=== PATIENT | female | born 2000 | race Caucasian/White ===

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

== ENCOUNTER → 2018-10-02 | Outpatient (CLI) | payer BC ==
[2018-10-04 14:19] LABS: HERPES ZOSTER, VARICELLA IgG 821 index (Immune >165); HERPES ZOSTER, VARICELLA IgM <0.91 index (0.00-0.90)
== END ==
LOC: M WUC 16:38
PROVIDERS: ATTEND Family Medicine
DX: Z01.84 Encounter for antibody response examination (principal)

== ENCOUNTER → 2019-03-04 | Outpatient (CLI) | payer BC ==
[2019-03-04 20:37] LABS: BASO % 0.5 % (0.0-1.0); EOS % 0.5 % (0.0-3.0); HEMATOCRIT 35.2 % (36.0-47.0); HEMOGLOBIN 12.2 g/dl (12.0-15.5); LYMPH % 23.3 % (24.0-44.0); MEAN CORPUSCULAR HEMOGLOBIN 28.5 pg (27.0-33.0); MEAN CORPUSCULAR HGB CONC 34.7 g/dl (32.0-36.5); MEAN CORPUSCULAR VOLUME 82.2 fl (80.0-96.0); MONO # 0.6 10^3/uL (0.0-0.8); MONO % 6.8 % (0.0-5.0); NEUTROPHILS # 5.8 10^3/uL (1.5-8.5); NEUTROPHILS % 68.5 % (36.0-66.0); PLATELET COUNT, AUTOMATED 361 10^3/uL (150-450); RED BLOOD COUNT 4.28 10^6/uL (4.00-5.40); WHITE BLOOD COUNT 8.4 10^3/uL (4.0-10.0)
[2019-03-04 21:02] LABS: RUBELLA IgG QUALITATIVE EQUIVOCAL (IMMUNE)
[2019-03-04 22:13] LABS: CHLAMYDIA DNA AMPLIFICATION NEGATIVE (NEGATIVE); GC DNA AMPLIFICATION NEGATIVE (NEGATIVE)
[2019-03-06 09:58] LABS: HIV 1&2 SCREEN CENTAUR NEGATIVE (NEGATIVE)
== END ==
LOC: M WUC 16:18
PROVIDERS: ATTEND Advanced Practice Midwife
DX: Z34.01 Encounter for supervision of normal first pregnancy, first trimester (principal)

== ENCOUNTER → 2019-04-19 | Outpatient (CLI) | payer BC ==
--- NOTE | 2019-04-19 18:40 | REP ---
Obstetric sonography: History: Supervision of for anatomy. Findings: Scanning through the gravid uterus demonstrates a viable single intrauterine gestation in a cephalic lie. motion is observed and heart rate is recorder 150 beats per minute. A posterior grade zero placenta is seen without evidence of previa or abruption. Amniotic fluid is subjectively normal. Closed cervical length is 3.2 cm measured transabdominally. No extra abdominal abnormality is seen. No anomaly is seen. The following anatomic structures are identified and felt to be sonographically unremarkable: cranium, choroid plexus, cavum, cerebellum and posterior fossa, face and profile, lungs, four-chamber heart with left and right ventricular outflow tract views, diaphragm, left-sided stomach, abdominal wall cord insertion, three-vessel umbilical cord, kidneys and bladder, spine, upper and lower extremities. Biometry chart: BPD 4.2 cm 18 weeks 6 days head circumference 14.6 cm 17 weeks 5 days abdominal circumference 12.4 cm 18 weeks 0 days femur length 2.5 cm 17 weeks 5 days humeral length 2.6 cm 18 weeks 2 days HC/AC ratio normal 1.18 cephalic index normal 0.84 estimated weight 214 grams, 0 pounds 7 ounces, 38th percentile for 18 weeks 1 day. Impression: Viable single intrauterine gestation of 18 weeks 1 day by today's composite sonographic criteria. LATOYA by today's sonography September 19, 2019. No anatomic abnormality. Electronically Signed by Brent Oliveira MD 04/19/2019 08:03 P
== END ==
LOC: M RAD 15:40
PROVIDERS: ATTEND Advanced Practice Midwife
DX: Z34.02 Encounter for supervision of normal first pregnancy, second trimester (principal); Z3A.18 18 weeks gestation of pregnancy

== ENCOUNTER → 2019-06-11 | Outpatient (CLI) | payer BC ==
[2019-06-11 13:02] LABS: HEMATOCRIT 32.8 % (36.0-47.0); HEMOGLOBIN 10.3 g/dl (12.0-15.5); MEAN CORPUSCULAR HEMOGLOBIN 27.8 pg (27.0-33.0); MEAN CORPUSCULAR HGB CONC 31.4 g/dl (32.0-36.5); MEAN CORPUSCULAR VOLUME 88.6 fl (80.0-96.0); PLATELET COUNT, AUTOMATED 289 10^3/uL (150-450); WHITE BLOOD COUNT 10.5 10^3/uL (4.0-10.0)
== END ==
LOC: M WUC 09:05
PROVIDERS: ATTEND Advanced Practice Midwife
DX: Z34.02 Encounter for supervision of normal first pregnancy, second trimester (principal)

== ENCOUNTER → 2019-07-09 | Outpatient (CLI) | payer BC ==
[2019-07-09 13:01] LABS: ALBUMIN 2.6 GM/DL (3.2-5.2); ALT/SGPT 17 U/L (12-78); BILIRUBIN,TOTAL 0.3 MG/DL (0.2-1.0); BLOOD UREA NITROGEN 8 MG/DL (7-18); CALCIUM LEVEL 8.7 MG/DL (8.5-10.1); CARBON DIOXIDE LEVEL 25 MEQ/L (21-32); CHLORIDE LEVEL 106 MEQ/L (98-107); CREATININE FOR GFR 0.53 MG/DL (0.55-1.30); GLUCOSE, FASTING 117 MG/DL (70-100); IRON (FE) 94 UG/DL (50-170); POTASSIUM SERUM 3.6 MEQ/L (3.5-5.1); SODIUM LEVEL 138 MEQ/L (136-145); TOTAL IRON BINDING CAPACITY 522 UG/DL (250-450); TOTAL PROTEIN 5.6 GM/DL (6.4-8.2)
[2019-07-09 13:10] LABS: BASO # 0.1 10^3/uL (0.0-0.2); BASO % 0.5 % (0.0-1.0); EOS # 0.1 10^3/uL (0.0-0.5); EOS % 0.5 % (0.0-3.0); HEMATOCRIT 32.7 % (36.0-47.0); HEMOGLOBIN 10.7 g/dl (12.0-15.5); LYMPH # 1.7 10^3/uL (1.5-5.0); LYMPH % 15.4 % (24.0-44.0); MEAN CORPUSCULAR HEMOGLOBIN 28.3 pg (27.0-33.0); MEAN CORPUSCULAR HGB CONC 32.7 g/dl (32.0-36.5); MEAN CORPUSCULAR VOLUME 86.5 fl (80.0-96.0); MONO # 0.6 10^3/uL (0.0-0.8); MONO % 5.3 % (0.0-5.0); NEUTROPHILS # 8.4 10^3/uL (1.5-8.5); NEUTROPHILS % 76.8 % (36.0-66.0); PLATELET COUNT, AUTOMATED 270 10^3/uL (150-450); RED BLOOD COUNT 3.78 10^6/uL (4.00-5.40); WHITE BLOOD COUNT 10.9 10^3/uL (4.0-10.0)
== END ==
LOC: M WUC 09:45
PROVIDERS: ATTEND Physician Assistant
DX: J02.9 Acute pharyngitis, unspecified (principal); M79.10 Myalgia, unspecified site

== ENCOUNTER → 2019-08-29 | Outpatient (REF) | payer BC | LOC: M SFHCWAGY 13:23 | PROVIDERS: ATTEND Nurse Practitioner Women's Health | DX: O99.820 Streptococcus B carrier state complicating pregnancy (principal); Z3A.37 37 weeks gestation of pregnancy ==

== ENCOUNTER 2019-09-24 14:16 | Inpatient (IN) | payer BC ==
[2019-09-24] VITALS (8 sets, daily range): BP systolic 106–122; BP diastolic 69–81
[~2019-09-24] VITALS: Ht 157.5 cm; Wt 70.8 kg
[2019-09-24] MEDS ORDERED: PREN29TA4 PO (14:42)
[2019-09-24] MEDS ORDERED: ACET325C5 PO (14:42)
[2019-09-24 15:47] LABS: HEMATOCRIT 32.4 % (36.0-47.0); MEAN CORPUSCULAR HEMOGLOBIN 28.4 pg (27.0-33.0); MEAN CORPUSCULAR VOLUME 83.5 fl (80.0-96.0); PLATELET COUNT, AUTOMATED 226 10^3/uL (150-450); RED BLOOD COUNT 3.88 10^6/uL (4.00-5.40)
[2019-09-24 16:19] LABS: ALT/SGPT 171 U/L (12-78); BILIRUBIN,TOTAL 0.3 MG/DL (0.2-1.0); CREATININE FOR GFR 0.65 MG/DL (0.55-1.30); GLOMERULAR FILTRATION RATE > 60.0 (>60); LDH LACTATE DEHYDROGENASE 231 U/L (84-246); URIC ACID 4.9 MG/DL (2.6-6.0)
[2019-09-24] MEDS ORDERED: ACETAMINOPHEN 500 MG TAB PO PRN (17:00)
[2019-09-24] MEDS: miSOPROStol 50 MCG 1/2 TAB (S0191) PO SCH ×2 (17:01→22:18)
--- NOTE | 2019-09-24 17:35 | HPE ---
DATE OF ADMISSION: 09/24/2019 Diane is a 19-year-old, 1, para 0. She is at 40-5/7 weeks gestation, estimated date of confinement (EDC) of 09/19/2019 based on last menstrual period and confirmed by first rest ultrasound . Presents to labor and delivery today for induction of labor due to preeclampsia versus gestational hypertension, recent onset today. She does report a mild headache. She denies visual disturbances, epigastric pain and right upper quadrant discomfort. She denies regular painful contractions, vaginal bleeding and leakage of fluid. The fetus has been active. Her care initiated at [facility] in the first trimester. course complicated by anxiety where she has been managed on Zoloft 25 mg, rubella equivocal with a plan for immunization and a history of human papillomavirus (HPV). OBSTETRIC HISTORY: Primigravida. OBSTETRIC LABS: O positive, antibody screen negative, RPR negative, hepatitis C antibody nonreactive, hepatitis B surface antigen negative, rubella equivocal, varicella immune. Gonorrhea and chlamydia negative. Gestational diabetic screen normal at 123. GBS is negative. PAST MEDICAL HISTORY: Anxiety. SURGERIES: None. FAMILY HISTORY: Diabetes and hypertension. SOCIAL HISTORY: The patient is . She is a nonsmoker. She denies alcohol and drug use. She does have a history of positive HPV. She denies history of abuse, physical, sexual and emotional. ALLERGIES: SULFA and BACTRIM. CURRENT MEDICATIONS: - vitamins - Zoloft 25 mg daily OBJECTIVE: Temperature 98, pulse 108, respirations 18. Blood pressures on arrival normotensive 106/81, 119/71 in the office this morning, when she was seen in our office 144/92. She did undergo preeclamptic workup. Her uric acid 4.9. AST elevated at 69, ALT elevated at 171. Her LDH is normal at 231. CBC: Hemoglobin 11, hematocrit 32.4, platelets 226 at the time. heart rate is 135 with moderate variability, positive accelerations, no decelerations. There is no pattern of regular contractions. Her abdomen is gravid, cephalic presentation. Estimated weight 7 pounds. Sterile Vaginal Exam: 1 cm dilated, 50% effaced, minus 3 station, posterior, moderate texture, no slow with the exam. ASSESSMENT: Intrauterine at 40-5/7, heart rate category 1, preeclampsia versus gestational hypertension. PLAN: Admit patient to labor and delivery. Routine labs. Out of bed ad daniel at this time. Regular diet at this time. Saline lock. I will start misoprostol 50 mcg by mouth for cervical ripening. I did review risks, benefits, and alternatives to the patient regarding induction of labor. All of her questions have been answered as well as her partner 's questions. She has been verbally consented for emergency surgery and blood products if they are necessary. I would do anticipate cervical ripening, may consider a Mercado bulb insertion, assist rupture of membranes and likely will start IV Pitocin for labor induction. I do anticipate cervical ripening.
[2019-09-24] MEDS ORDERED: PROMETHAZINE INJ 25 MG/ML VIAL (J2550) IV ONE ×2 (21:15→21:30)
[2019-09-24] MEDS ORDERED: BUTORPHANOL 2 MG/ML INJ (J0595) IV ONE ×2 (21:15→21:30)
[2019-09-25] VITALS (40 sets, daily range): BP systolic 96–143; BP diastolic 54–82
[2019-09-25] MEDS: miSOPROStol 50 MCG 1/2 TAB (S0191) PO SCH ×2 (02:49→05:00)
[2019-09-25] MEDS ORDERED: FENTANYL 2MCG/ML ROPIVACAINE 0.2% IN 0.9% NACL 100ML IVBAG As Ordered ONE (05:40)
[2019-09-25] MEDS ORDERED: LACTATED RINGER'S 1000 ML IV PRN (07:00)
[2019-09-25] MEDS ORDERED: ONDANSETRON 4MG/2ML VIAL IV PRN (07:00)
[2019-09-25] MEDS ORDERED: diphenhydrAMINE 50MG/ML VIAL (J1200) IV PRN (07:00)
[2019-09-25] MEDS ORDERED: LR 1,000 ML IV ONE (07:00)
[2019-09-25] MEDS ORDERED: EPIDURAL COMMENT XX SCH (07:00)
[2019-09-25] MEDS ORDERED: ePHEDrine SULFATE 25 MG/5 ML(5MG/ML) SYRINGE IV PRN (07:00)
[2019-09-25] MEDS ORDERED: REFRIGERATOR IV KEYS XX PRN (07:00)
[2019-09-25] MEDS ORDERED: NALOXONE INJ 0.4MG/1ML VIAL (J2310 PER 1MG) IV PRN (07:00)
[2019-09-25] MEDS ORDERED: FENTANYL/ROPIVACAINE/NACL BAG 100 ML EPIDURAL SCH (07:00)
[2019-09-25] MEDS ORDERED: EPIDURAL/PCA KEYS XX PRN (07:00)
[2019-09-25] MEDS: PRENATAL VITAMINS CHEWABLE TABLET PO SCH (09:00)
[2019-09-25] MEDS ORDERED: OXYTOCIN 30 UNITS IN 0.9% NaCl 500ML IV BAG (J2590) As Ordered ONE (09:52)
[2019-09-25 11:32] LABS: CORD GAS ABE A -9.8; CORD GAS HCO3 A 21.6 MEQ/L; CORD GAS O2 SAT A 43.5 %; CORD GAS PCO2 A 72.8 mmHg; CORD GAS PH A 7.09 UNITS; CORD GAS PO2 A 26.2 mmHg; CORD GAS SBC A 15.7 MEQ/L; CORD GAS TCO2 A 23.8 MEQ/L
[2019-09-25 11:34] LABS: CORD GAS ABE V -7.6; CORD GAS HCO3 V 18.9 MEQ/L; CORD GAS O2 SAT V 56.8 %; CORD GAS PCO2 V 42.2 mmHg; CORD GAS PH V 7.27 UNITS; CORD GAS PO2 V 25.6 mmHg; CORD GAS SBC V 17.5 MEQ/L; CORD GAS TCO2 V 20.2 MEQ/L
[2019-09-25] MEDS ORDERED: OXYTOCIN DRIP 30 UNITS in IV 1 EA IV SCH (11:44)
[2019-09-25] MEDS ORDERED: ACETAMINOPHEN 500 MG TAB PO PRN (11:45)
[2019-09-25] MEDS ORDERED: ACETAMINOPHEN TAB 650MG DOSE (2X325MG) PO PRN (11:45)
[2019-09-25] MEDS ORDERED: DOCUSATE SODIUM 100 MG CAP PO PRN (11:45)
[2019-09-25] MEDS ORDERED: RHOGAM 300 MCG (1500 IU) INJ (J2790) IM SCH (11:45)
[2019-09-25] MEDS ORDERED: MEASLES,MUMPS,RUBELLA VACCINE INJ (MMR-II) (90707) SC SCH (11:45)
[2019-09-25] MEDS ORDERED: IBUPROFEN 600 MG TAB PO PRN (11:45)
[2019-09-25] MEDS ORDERED: DIBUCAINE 1% OINTMENT 30GM TOP PRN (11:45)
[2019-09-25] MEDS ORDERED: LIDOCAINE 1% MDV 20ML VIAL INFIL ONE (11:45)
[2019-09-25] MEDS ORDERED: ANUSOL HC CREAM 30GM TOP PRN (11:45)
--- NOTE | 2019-09-25 11:57 | DN ---
DATE OF DELIVERY: 09/25/2019 DELIVERY NOTE: Diane is a 19-year-old, 1, para 1-0-0-1 now, was admitted to labor and delivery for induction of labor due to preeclampsia. She had three doses of misoprostol and labor did ensue. She utilized an epidural for her labor coping. She had spontaneous rupture of membranes for clear fluid at 0342 hours. She reached full dilation at 0946 hours. She pushed to a normal spontaneous vaginal delivery of a live male in right occiput anterior (RONALD) position with restitution to occiput transverse (ROT) position at 1048 hours. There was a nuchal cord times one loose reduced manually at the time of delivery. There was a mild shoulder dystocia that was resolved with Karie maneuver and maternal expulsive efforts and gentle downward traction. The was then placed on maternal abdomen crying and active. Mouth and nares were bulb suctioned. The cord was clamped times two and cut by the father of the baby under my direction. Cord blood and cord gases were obtained. Spontaneous expulsion of an intact placenta with three-vessel cord by Schultze mechanism was at 1056 hours. Uterine hemostasis was achieved with uterine fundal massage and IV Pitocin rapid infusion. Estimated blood loss 400 mL. Perineum and vagina inspected. Noted to have a second-degree midline laceration as well as bilateral labial lacerations. The lacerations were infiltrated with 1% lidocaine and repaired with #3-0 Vicryl Rapide in the usual fashion. male weighed 3850 grams (8 pounds 8 ounces) score was 8 and 9. Mom is going to breast feed her son, and the family has named him Enoch. At the close of delivery, lap counts, needle counts and instrument counts were correct and verified. Arterial cord gas 7.090 with a base excess of -9.8. Venous cord pH 7.270 with a base excess of -7.6.
[2019-09-25] MEDS: IBUPROFEN 800 MG TAB PO PRN ×2 (13:41→21:23)
[2019-09-26 05:49] VITALS: BP 105/51
[2019-09-26] MEDS: PRENATAL VITAMINS CHEWABLE TABLET PO SCH (07:45)
[2019-09-26] MEDS: IBUPROFEN 800 MG TAB PO PRN ×2 (07:46→15:09)
[2019-09-26] MEDS ORDERED: BOOSTRIX/ADACEL VACCINE (DIPHTH/PERTUSS/ACELL/TETANUS) 0.5ML SYR IM ONE (09:00)
== END 2019-09-26 19:39 | disposition home or self-care (01) | DRG 560 ==
LOC: M LDI 14:16 → M OBS 09-25 13:22
PROVIDERS: ADMIT Obstetrics & Gynecology; ATTEND Obstetrics & Gynecology
PROC: 10E0XZZ Delivery of Products of Conception, External Approach (ICD-10-PCS; principal; 2019-09-24)
PROC: 0KQM0ZZ Repair Perineum Muscle, Open Approach (ICD-10-PCS; 2019-09-24)
PROC: 3E0DXGC Introduction of Other Therapeutic Substance into Mouth and Pharynx, External Approach (ICD-10-PCS; 2019-09-24)
DX: O14.94 Unspecified pre-eclampsia, complicating childbirth (principal); O99.344 Other mental disorders complicating childbirth; F41.9 Anxiety disorder, unspecified; Z37.0 Single live birth; Z3A.40 40 weeks gestation of pregnancy; O69.82X0 Labor and delivery complicated by other cord entanglement, without compression, not applicable or unspecified; O66.0 Obstructed labor due to shoulder dystocia; Z79.899 Other long term (current) drug therapy; Z88.8 Allergy status to other drugs, medicaments and biological substances; Z88.2 Allergy status to sulfonamides; O70.1 Second degree perineal laceration during delivery

== ENCOUNTER → 2019-11-27 | Outpatient (CLI) | payer BC ==
[~2019-11-27] MED LIST: ACET325C5 PO; PREN29TA4 PO
== END ==
LOC: M LABSMTC 13:30
PROVIDERS: ATTEND Family Medicine
DX: Z11.59 Encounter for screening for other viral diseases (principal); Z20.828 Contact with and (suspected) exposure to other viral communicable diseases
CPT/HCPCS: C9803; U0003

== ENCOUNTER → 2020-06-04 | Outpatient (REF) | payer BC | LOC: M LAB REF 15:53 | PROVIDERS: ATTEND Physician Assistant | DX: R30.0 Dysuria (principal) ==

== ENCOUNTER → 2020-07-15 | Outpatient (CLI) | payer BC ==
[2020-07-15 17:03] LABS: ALBUMIN 3.9 GM/DL (3.2-5.2); ALT/SGPT 29 U/L (12-78); BILIRUBIN,TOTAL 0.9 MG/DL (0.2-1.0); BLOOD UREA NITROGEN 12 MG/DL (7-18); CARBON DIOXIDE LEVEL 26 MEQ/L (21-32); CHLORIDE LEVEL 107 MEQ/L (98-107); CREATININE FOR GFR 0.65 MG/DL (0.55-1.30); FREE T4 0.94 NG/DL (0.76-1.46); GLOMERULAR FILTRATION RATE > 60.0 (>60); GLUCOSE, FASTING 88 MG/DL (70-100); POTASSIUM SERUM 3.7 MEQ/L (3.5-5.1); SODIUM LEVEL 139 MEQ/L (136-145); TOTAL PROTEIN 6.6 GM/DL (6.4-8.2)
[2020-07-15 17:20] LABS: BASO % 0.6 % (0.0-1.0); EOS % 0.5 % (0.0-3.0); HEMATOCRIT 38.6 % (36.0-47.0); HEMOGLOBIN 12.5 g/dl (12.0-15.5); LYMPH # 1.9 10^3/uL (1.5-5.0); LYMPH % 30.1 % (24.0-44.0); MEAN CORPUSCULAR HEMOGLOBIN 27.2 pg (27.0-33.0); MEAN CORPUSCULAR HGB CONC 32.4 g/dl (32.0-36.5); MEAN CORPUSCULAR VOLUME 84.1 fl (80.0-96.0); MONO # 0.5 10^3/uL (0.0-0.8); MONO % 7.7 % (2.0-8.0); NEUTROPHILS # 3.9 10^3/uL (1.5-8.5); NEUTROPHILS % 60.8 % (36.0-66.0); PLATELET COUNT, AUTOMATED 322 10^3/uL (150-450); RED BLOOD COUNT 4.59 10^6/uL (4.00-5.40); WHITE BLOOD COUNT 6.4 10^3/uL (4.0-10.0)
== END ==
LOC: M WUC 11:38
PROVIDERS: ATTEND Physician Assistant
DX: R00.2 Palpitations (principal); Z20.828 Contact with and (suspected) exposure to other viral communicable diseases

== ENCOUNTER 2020-07-17 11:48 | Emergency (ER) | payer BC ==
[~2020-07-17] VITALS: Ht 157.5 cm; Wt 53.6 kg
[2020-07-17 13:44] LABS: BASO # 0.1 10^3/uL (0.0-0.2); BASO % 0.7 % (0.0-1.0); EOS % 0.3 % (0.0-3.0); HEMATOCRIT 37.6 % (36.0-47.0); HEMOGLOBIN 12.8 g/dl (12.0-15.5); LYMPH # 2.4 10^3/uL (1.5-5.0); LYMPH % 26.5 % (24.0-44.0); MEAN CORPUSCULAR HEMOGLOBIN 27.4 pg (27.0-33.0); MEAN CORPUSCULAR VOLUME 80.5 fl (80.0-96.0); MONO # 0.5 10^3/uL (0.0-0.8); MONO % 5.4 % (2.0-8.0); NEUTROPHILS # 6.1 10^3/uL (1.5-8.5); NEUTROPHILS % 66.5 % (36.0-66.0); PLATELET COUNT, AUTOMATED 361 10^3/uL (150-450); RED BLOOD COUNT 4.67 10^6/uL (4.00-5.40); WHITE BLOOD COUNT 9.1 10^3/uL (4.0-10.0)
[2020-07-17 14:14] LABS: BLOOD UREA NITROGEN 12 MG/DL (7-18); CALCIUM LEVEL 9.5 MG/DL (8.5-10.1); CARBON DIOXIDE LEVEL 24 MEQ/L (21-32); CHLORIDE LEVEL 112 MEQ/L (98-107); CREATININE FOR GFR 0.65 MG/DL (0.55-1.30); FREE THYROXINE INDEX 2.5 % (1.3-4.8); GLOMERULAR FILTRATION RATE > 60.0 (>60); GLUCOSE, FASTING 87 MG/DL (70-100); MAGNESIUM LEVEL 2.1 MG/DL (1.8-2.4); POTASSIUM SERUM 3.6 MEQ/L (3.5-5.1); SODIUM LEVEL 141 MEQ/L (136-145); T UPTAKE 27 % (30-39); THYROXINE (T4) 9.4 UG/DL (4.5-12.0); TROPONIN I < 0.02 NG/ML (< 0.10)
--- NOTE | 2020-07-17 15:15 | REP ---
INDICATION: chest pain, sob COMPARISON: 06/03/2016. TECHNIQUE: PA/Lateral FINDINGS: Lungs: Clear, no infiltrate. Heart: Normal in size. Mediastinum: Mediastinal silhouette unremarkable. Pleural angles: Unremarkable.. Bones and soft tissues: Unremarkable. IMPRESSION: No acute pulmonary disease. <Electronically signed by Jason Bernstein > 07/17/20 [id number]
[2020-07-17 15:55] VITALS: BP 115/70
--- NOTE | 2020-07-17 18:50 | ECGEPIP ---
[facility] - ED Test Date: 2020-07-17 Pat Name: JOSE L DEVLIN Department: Room: - Gender: Female [employer] Miller: : 2000 Requested By: Tamia West Order Number: [id number] Reading MD: Stella Deluca Measurements Intervals [place] Rate: 96 P: 58 [place]: 124 QRS: 50 QRSD: 76 T: 29 QT: 340 QTc: 429 Interpretive Statements Normal sinus rhythm No prior Electronically Signed on 07-17-2020 18:49:45 EST by Stella Deluca
== END 2020-07-17 16:01 | disposition home or self-care (01) ==
LOC: M ED 11:48
DX: R00.2 Palpitations (principal); R07.89 Other chest pain; Z32.01 Encounter for pregnancy test, result positive; Z88.1 Allergy status to other antibiotic agents; Z3A.00 Weeks of gestation of pregnancy not specified

== ENCOUNTER → 2020-11-30 | Outpatient (REF) | payer BC | LOC: M SFHCWAGY 18:57 | PROVIDERS: ATTEND Advanced Practice Midwife | DX: Z12.4 Encounter for screening for malignant neoplasm of cervix (principal); R87.625 Unsatisfactory cytologic smear of vagina ==

== ENCOUNTER → 2021-01-15 | Outpatient (REF) | payer BC | LOC: M PLALAB 12:49 | PROVIDERS: ATTEND Advanced Practice Midwife | DX: R87.615 Unsatisfactory cytologic smear of cervix (principal) ==

== ENCOUNTER → 2021-03-13 | Outpatient (REF) | LOC: M EMP 11:03 | PROVIDERS: ATTEND Family Medicine | DX: Z20.828 Contact with and (suspected) exposure to other viral communicable diseases (principal) ==

== ENCOUNTER → 2021-04-12 | Outpatient (REF) ==
[2021-04-12 15:59] LABS: RSV AMPLIFICATION NEGATIVE (NEGATIVE)
== END ==
LOC: M LABSMTC 10:15
PROVIDERS: ATTEND Family Medicine
DX: Z20.822 Contact with and (suspected) exposure to COVID-19 (principal)

== ENCOUNTER → 2021-04-16 | Outpatient (REF) | LOC: M LABSMTC 10:06 | PROVIDERS: ATTEND Family Medicine | DX: Z20.828 Contact with and (suspected) exposure to other viral communicable diseases (principal) ==

== ENCOUNTER → 2021-06-02 | Outpatient (CLI) | payer BC ==
[2021-06-02 09:52] LABS: HEMOGLOBIN 12.6 g/dl (12.0-15.5); MEAN CORPUSCULAR HEMOGLOBIN 27.4 pg (27.0-33.0); MEAN CORPUSCULAR HGB CONC 32.3 g/dl (32.0-36.5); MEAN CORPUSCULAR VOLUME 84.8 fl (80.0-96.0); PLATELET COUNT, AUTOMATED 331 10^3/uL (150-450); WHITE BLOOD COUNT 8.1 10^3/uL (4.0-10.0)
[2021-06-02 10:30] LABS: ALT/SGPT 28 U/L (12-78); BLOOD UREA NITROGEN 14 MG/DL (7-18); CALCIUM LEVEL 8.9 MG/DL (8.5-10.1); CARBON DIOXIDE LEVEL 27 MEQ/L (21-32); CHLORIDE LEVEL 107 MEQ/L (98-107); CREATININE FOR GFR 0.73 MG/DL (0.55-1.30); GLOMERULAR FILTRATION RATE > 60.0 (>60); GLUCOSE, FASTING 70 MG/DL (70-100); SODIUM LEVEL 140 MEQ/L (136-145)
[2021-06-02 10:31] LABS: ALBUMIN 3.9 GM/DL (3.2-5.2); BILIRUBIN,TOTAL 0.5 MG/DL (0.2-1.0); THYROID STIMULATING HORMONE 0.754 uIU/ML (0.358-3.740); TOTAL PROTEIN 6.8 GM/DL (6.4-8.2)
== END ==
LOC: M WUC 08:13
PROVIDERS: ATTEND Family Medicine
DX: R53.83 Other fatigue (principal)

== ENCOUNTER → 2023-02-09 | Outpatient (CLI) | payer OTHER | LOC: M LAB 18:16 | PROVIDERS: ATTEND Advanced Practice Midwife | DX: N91.2 Amenorrhea, unspecified (principal) ==

== ENCOUNTER → 2023-02-11 | Outpatient (CLI) | payer OTHER ==
[~2023-02-11] MED LIST changes: +ACET-683 PO; +IBUP-1022 PO; +MULTCHW14 PO; +SERT-141 PO; +ZOLO50TA PO
== END ==
LOC: M LAB 10:02
PROVIDERS: ATTEND Advanced Practice Midwife
DX: Z30.432 Encounter for removal of intrauterine contraceptive device (principal); O26.30 Retained intrauterine contraceptive device in pregnancy, unspecified trimester; Z3A.00 Weeks of gestation of pregnancy not specified

== ENCOUNTER → 2023-02-12 | Day surgery (SDC) | payer OTHER ==
[~2023-02-12] VITALS: Ht 157.5 cm; Wt 61.3 kg
[~2023-02-12] MED LIST changes: +ACETAMINOPHEN 1000MG 100ML IV BAG As Ordered ONE; +HOME MED LIST COMPLETE! XX SCH; +HYDROMORPHONE HCL 0.5 MG/ 0.5 ML SYRINGE IV PRN; +KETOROLAC 60MG 2ML VIAL As Ordered ONE; +LIDOCAINE 2% 100MG/5ML SDV (FOR ANES.) As Ordered ONE; +LR 1,000 ML IV SCH; +MED REC IN PROGRESS XX SCH; +METOCLOPRAMIDE INJ 10MG/2ML VIAL As Ordered ONE; +MIDAZOLAM INJ 2MG/2ML VIAL As Ordered ONE; +MORPHINE 2 MG/ML 1ML VIAL IV ONE; +NS 1,000 ML IV SCH; +ONDANSETRON 4MG 2ML VIAL As Ordered ONE; +ONDANSETRON 4MG 2ML VIAL IV PRN; +ROCURONIUM BROMIDE 50MG/5ML VIAL As Ordered ONE; +SUGAMMADEX SODIUM 500 MG/5 ML VIAL (BRIDION) As Ordered ONE; +fentaNYL 250 MCG/5 ML INJECTION As Ordered ONE; +propofoL 200 MG/20 ML VIAL As Ordered ONE
[2023-02-12 11:48] LABS: BASO # 0.1 10^3/uL (0.0-0.2); BASO % 0.6 % (0.0-1.0); EOS # 0.1 10^3/uL (0.0-0.5); EOS % 0.5 % (0.0-3.0); HEMATOCRIT 38.9 % (36.0-47.0); HEMOGLOBIN 12.9 g/dl (12.0-15.5); LYMPH # 2.1 10^3/uL (1.5-5.0); LYMPH % 21.2 % (24.0-44.0); MEAN CORPUSCULAR HEMOGLOBIN 28.2 pg (27.0-33.0); MEAN CORPUSCULAR HGB CONC 33.2 g/dl (32.0-36.5); MEAN CORPUSCULAR VOLUME 84.9 fl (80.0-96.0); MONO # 0.6 10^3/uL (0.0-0.8); MONO % 5.9 % (2.0-8.0); NEUTROPHILS # 7.1 10^3/uL (1.5-8.5); NEUTROPHILS % 71.5 % (36.0-66.0); PLATELET COUNT, AUTOMATED 322 10^3/uL (150-450); RED BLOOD COUNT 4.58 10^6/uL (4.00-5.40)
[2023-02-12 12:12] LABS: BLOOD UREA NITROGEN 11 MG/DL (9-23); CALCIUM LEVEL 9.1 MG/DL (8.5-10.1); CARBON DIOXIDE LEVEL 28 MMOL/L (20-31); CHLORIDE LEVEL 106 MMOL/L (98-107); CREATININE FOR GFR 0.61 MG/DL (0.55-1.30); GLOMERULAR FILTRATION RATE > 60.0 (>60); GLUCOSE, FASTING 82 MG/DL (60-100); POTASSIUM SERUM 3.8 MMOL/L (3.5-5.1); SODIUM LEVEL 139 MMOL/L (136-145)
[2023-02-12 12:42] LABS: HCG, SERUM QUANTITATIVE 9823.8 MIU/ML (<4.2)
[2023-02-12 13:27] LABS: RSV AMPLIFICATION NEGATIVE (NEGATIVE)
[2023-02-12] MEDS: MEPERIDINE 25 MG/ML 1ML VIAL IV PRN ×2 (18:41→18:49)
[2023-02-12] MEDS: fentaNYL 100 MCG/2 ML INJECTION IV PRN ×2 (18:55→19:04)
[2023-02-12] MEDS: oxyCODONE 5MG TAB PO PRN ×2 (19:08→19:54)
[2023-02-12 19:45] VITALS: BP 118/69; TEMP 97.4; O2SAT 100
== END | disposition home or self-care (01) ==
LOC: M ED 10:49 → M SDC 10:50
PROVIDERS: ATTEND Obstetrics & Gynecology
DX: O00.102 Left tubal pregnancy without intrauterine pregnancy (principal); Z88.2 Allergy status to sulfonamides; Z88.1 Allergy status to other antibiotic agents
CPT/HCPCS: 59151; 76801; 80048; 84702; 85025; 86850; 86900; 86901; 87631; 88305; 93041; 93976; 94760; 96360; 96361; 99285; J0131; J1100; J1885; J2175; J2250; J2405; J2765; J3010

== ENCOUNTER → 2023-04-01 | Outpatient (REF) ==
[~2023-04-01] MED LIST changes: -ACETAMINOPHEN 1000MG 100ML IV BAG As Ordered ONE; -HOME MED LIST COMPLETE! XX SCH; -HYDROMORPHONE HCL 0.5 MG/ 0.5 ML SYRINGE IV PRN; -KETOROLAC 60MG 2ML VIAL As Ordered ONE; -LIDOCAINE 2% 100MG/5ML SDV (FOR ANES.) As Ordered ONE; -LR 1,000 ML IV SCH; -MED REC IN PROGRESS XX SCH; -METOCLOPRAMIDE INJ 10MG/2ML VIAL As Ordered ONE; -MIDAZOLAM INJ 2MG/2ML VIAL As Ordered ONE; -MORPHINE 2 MG/ML 1ML VIAL IV ONE; -NS 1,000 ML IV SCH; -ONDANSETRON 4MG 2ML VIAL As Ordered ONE; -ONDANSETRON 4MG 2ML VIAL IV PRN; -ROCURONIUM BROMIDE 50MG/5ML VIAL As Ordered ONE; -SUGAMMADEX SODIUM 500 MG/5 ML VIAL (BRIDION) As Ordered ONE; -fentaNYL 250 MCG/5 ML INJECTION As Ordered ONE; -propofoL 200 MG/20 ML VIAL As Ordered ONE
[2023-04-01 16:04] LABS: RSV AMPLIFICATION NEGATIVE (NEGATIVE)
== END ==
LOC: M EMP 12:15
PROVIDERS: ATTEND Family Medicine
DX: Z20.822 Contact with and (suspected) exposure to COVID-19 (principal)

== ENCOUNTER → 2023-12-07 | Outpatient (CLI) | payer BC, OTHER ==
[2023-12-07 11:16] LABS: BASO # 0.1 10^3/uL (0.0-0.2); BASO % 0.8 % (0.0-1.0); EOS # 0.1 10^3/uL (0.0-0.5); EOS % 0.8 % (0.0-3.0); HEMATOCRIT 37.4 % (36.0-47.0); HEMOGLOBIN 12.2 g/dl (12.0-15.5); LYMPH # 2.3 10^3/uL (1.5-5.0); LYMPH % 27.5 % (24.0-44.0); MEAN CORPUSCULAR HEMOGLOBIN 28.4 pg (27.0-33.0); MEAN CORPUSCULAR HGB CONC 32.6 g/dl (32.0-36.5); MEAN CORPUSCULAR VOLUME 87.2 fl (80.0-96.0); MONO # 0.6 10^3/uL (0.0-0.8); MONO % 7.5 % (2.0-8.0); NEUTROPHILS # 5.3 10^3/uL (1.5-8.5); PLATELET COUNT, AUTOMATED 317 10^3/uL (150-450); RED BLOOD COUNT 4.29 10^6/uL (4.00-5.40); WHITE BLOOD COUNT 8.4 10^3/uL (4.0-10.0)
[2023-12-07 11:45] LABS: ALBUMIN 3.9 G/DL (3.2-5.2); ALKALINE PHOSPHATASE 69 U/L (46-116); ALT/SGPT 19 U/L (7.0-40); AST/SGOT 13 U/L (<34); BILIRUBIN,TOTAL 0.4 MG/DL (0.3-1.2); BLOOD UREA NITROGEN 15 MG/DL (9-23); CALCIUM LEVEL 9.1 MG/DL (8.5-10.1); CARBON DIOXIDE LEVEL 28 MMOL/L (20-31); CHLORIDE LEVEL 106 MMOL/L (98-107); CHOLESTEROL LEVEL 210 MG/DL (<200); CHOLESTEROL RISK RATIO 3.18 (<5); GLOMERULAR FILTRATION RATE > 60.0 (>60); GLUCOSE, FASTING 88 MG/DL (60-100); HDL CHOLESTEROL 65.9 MG/DL (>40); LDL CHOLESTEROL 134.3 MG/DL (<100); NON-HDL-C 144.1 MG/DL; POTASSIUM SERUM 4.6 MMOL/L (3.5-5.1); SODIUM LEVEL 140 MMOL/L (136-145); TOTAL PROTEIN 6.3 G/DL (5.7-8.2); TRIGLYCERIDES LEVEL 49 MG/DL (<150)
[2023-12-07 11:50] LABS: THYROID STIMULATING HORMONE 1.717 uIU/ML (0.55-4.78)
== END ==
LOC: M PLALAB 07:17
PROVIDERS: ATTEND Family Medicine
DX: Z00.00 Encounter for general adult medical examination without abnormal findings (principal); Z79.899 Other long term (current) drug therapy

== ENCOUNTER → 2024-07-16 | Outpatient (REF) | LOC: M EMP 08:52 | PROVIDERS: ATTEND Family Medicine | DX: Z01.89 Encounter for other specified special examinations (principal) ==

== ENCOUNTER → 2024-11-26 | Outpatient (CLI) | payer BC | LOC: M WHC 11:55 | PROVIDERS: ATTEND Family Medicine | DX: R22.9 Localized swelling, mass and lump, unspecified (principal) ==

== ENCOUNTER → 2025-01-23 | Outpatient (REF) | payer BC ==
[~2025-01-23] MED LIST changes: -IBUP-1022 PO; +IBUP600T42 PO
[2025-01-28 14:53] LABS: HPV APTIMA Not Detected (Not Detected)
== END ==
LOC: M PLALAB 15:38
PROVIDERS: ATTEND Student in an Organized Health Care Education/Training Program
DX: Z01.419 Encounter for gynecological examination (general) (routine) without abnormal findings (principal)
CPT/HCPCS: 87624; G0123

== ENCOUNTER → 2025-03-12 | Outpatient (CLI) | payer BC | LOC: M WHC 12:07 | PROVIDERS: ATTEND Surgery | DX: N64.4 Mastodynia (principal); Z80.3 Family history of malignant neoplasm of breast ==

== ENCOUNTER → 2025-04-28 | Outpatient (REF) | payer BC | LOC: M PLALAB 10:16 | PROVIDERS: ATTEND Advanced Practice Midwife | DX: Z53.9 Procedure and treatment not carried out, unspecified reason (principal) ==

== ENCOUNTER → 2025-05-05 | Outpatient (REF) | LOC: M EMP 07:24 | PROVIDERS: ATTEND Family Medicine | DX: Z11.52 Encounter for screening for COVID-19 (principal) ==

== ENCOUNTER → 2025-05-06 | Outpatient (REF) | payer BC ==
[2025-05-06 16:28] LABS: PLATELET COUNT, AUTOMATED 384 10^3/uL (150-450)
[2025-05-06 16:52] LABS: LDH LACTATE DEHYDROGENASE 204 U/L (120-246)
[2025-05-06 16:53] LABS: ALT/SGPT 13 U/L (7.0-40); AST/SGOT 13 U/L (<34); CREATININE FOR GFR 0.56 MG/DL (0.55-1.30); GLOMERULAR FILTRATION RATE > 90.0 (>60)
[2025-05-06 17:11] LABS: TOTAL PROTEIN,RANDOM URINE 10.5 MG/DL (0.0-14.0)
[2025-05-06 17:29] LABS: Trichomonas vaginalis (AMP) NOT DETECTED (NEGATIVE)
[2025-05-06 17:47] LABS: HIV 1&2 SCREEN NEGATIVE (NEGATIVE)
[2025-05-06 17:53] LABS: GC DNA AMPLIFICATION NEGATIVE (NEGATIVE)
[2025-05-06 17:54] LABS: HEPATITIS C VIRUS ABY INDEX 0.05 INDEX (<0.8)
== END ==
LOC: M SFHCWAGY 15:14
PROVIDERS: ATTEND Advanced Practice Midwife
DX: Z34.80 Encounter for supervision of other normal pregnancy, unspecified trimester (principal)